=== PATIENT | female | born 1980 | race African-American/Black ===

== ENCOUNTER 2017-01-10 18:10 | Emergency (ER) | payer SELFPAY ==
[~2017-01-10] VITALS: Ht 162.6 cm; Wt 75.0 kg
[2017-01-10 18:12] VITALS: BP 134/84; PULSE 74; RESP 12; TEMP 97.7; O2SAT 98
[2017-01-10] MEDS ORDERED: PRED20 PO (18:39)
[2017-01-10] MEDS ORDERED: ALA1CRE2 TOPICAL (18:39)
[2017-01-10] MEDS ORDERED: DEXAMETHASONE SOD PHOS 20 MG/5 ML VIAL IM ONE (18:45)
--- NOTE | 2017-01-10 18:46 | PD ---
HPI Chief Complaint: Allergic/Adverse Reaction Time Seen by Provider: 18:31 Travel History International Travel<30 days: No Contact w/Intl Traveler<30days: No Traveled to known affect area: No History of Present Illness HPI 36-year-old female that presents to the ED for evaluation of itching and swelling on the forehead from using a perm. Per patient she used an old bottle and she wasn't sure if he was given a work for her about 3 days ago. Immediately after she started putting this she noted that she started itching. She did not notice the swelling until she looked in the mirror the day after. Ever since she was able to wash off the perm. But she has noticed that the itching and the swelling continues. She denies any other medical issues. No fevers chills or sweats. No shortness of breath or swelling to the throat. Denies ever having a reaction like this before and she believes that is because is an old bottle. Denies any pain with it. No drainage. PFSH Past Medical History Medical History: Denies Significant Hx ?: Not LMP: 12/20/16 Past Surgical History Surgical History: No Previous Surgery Social History Alcohol Use: No Tobacco Use: No Substance Use: No Allergies-Medications (Allergen,Severity, Reaction): Coded Allergies: No Known Allergies (Verified Allergy, Mild, 03/17/06) Reported Meds & Prescriptions Reported Meds & Active Scripts Active Ala-Shubham Topical (Hydrocortisone (Topical)) 1% Cream 1 Applic TOPICAL DIRECTED Prednisone 20 Mg Tab 20 Mg PO BID 5 Days Review of Systems Except as stated in HPI: all other systems reviewed are Neg Physical Exam Narrative GENERAL: SKIN: Warm and dry. Patient has an area of blistering as well as erythema noted on the forehead were the hair begins. Not painful but pruritic. Patient does have soft tissue swelling on the area. Appears to follow the area of the hair. Blistering noted. HEAD: Atraumatic. Normocephalic. EYES: Pupils equal and round. No scleral icterus. No injection or drainage. ENT: No nasal bleeding or discharge. Mucous membranes pink and moist. Tongue is midline. No uvula deviation. NECK: Trachea midline. No JVD. CARDIOVASCULAR: Regular rate and rhythm. No murmurs, S3, S4. RESPIRATORY: No accessory muscle use. Clear to auscultation. Breath sounds equal bilaterally. GASTROINTESTINAL: Abdomen soft, non-tender, nondistended. Hepatic and splenic margins not palpable. MUSCULOSKELETAL: Extremities without clubbing, cyanosis, or edema. No obvious deformities. Full range of motion of the upper and lower extremities bilaterally. 2+ pulses bilaterally. NEUROLOGICAL: Awake and alert. No obvious cranial nerve deficits. Motor grossly within normal limits. Five out of 5 muscle strength in the arms and legs. Normal speech. PSYCHIATRIC: Appropriate mood and affect; insight and judgment normal. Data Data Last Documented VS Vital Signs Date Time Temp Pulse Resp B/P (MAP) Pulse Ox O2 Delivery O2 Flow Rate FiO2 01/10/17 18:12 97.7 74 12 134/84 (101) 98 Orders Orders Dexamethasone Inj (Decadron Inj) (01/10/17 18:45) [facility] Medical Decision Making Medical Screen Exam Complete: Yes Emergency Medical Condition: Yes Medical Record Reviewed: Yes Differential Diagnosis allergic dermatitis versus skin dermatitis versus hives Narrative Course 36-year-old female that presents to the ED for evaluation of itchy rash. Patient was properly examined and was found to have signs and symptoms consistent with appears to be allergic dermatitis. Likely secondary to chronic use on her hair. Patient has since washed it off. She does have hives from the alleged reaction. Patient was given a dose of dexamethasone here and given prescription for hydrocortisone as well as prednisone. She was told to take Benadryl [id number] as needed for the age. She was told that the symptoms will likely continue for a couple of days to weeks. She was told that if anything worsens she is to come back to the ED. She was told to not use the product on her hair anymore. See ED for worsening symptoms. Diagnosis Primary Impression: Allergic dermatitis Patient Instructions: General Instructions Additional Instructions: Take medications as prescribed. He can take Benadryl 25 or 50 mg every 6 hours as needed. If it makes her too drowsy you can also use zyrtec, Claritin, Whit to help with the symptoms of itching but might not be as effective. See ED worsening symptoms. Follow with PCP. Do not put anything else in your hair other than your regular shampoo. Med/Other Pt SpecificInfo: Prescription(s) given Scripts Hydrocortisone (Topical) (Ala-Shubham Topical) 1% Cream 1 APPLIC TOPICAL DIRECTED for Inflammation, #1 TUBE 0 Refills Prov: Travon Tidwell MD 01/10/17 Prednisone (Prednisone) 20 Mg Tab 20 MG PO BID for 5 Days, #10 TAB 0 Refills Prov: Travon Tidwell MD 01/10/17 Disposition: 01 DISCHARGE HOME Condition: Indra Moreno Jan 10, 2017 18:46
[2017-01-10 19:15] VITALS: BP 109/63
== END 2017-01-10 19:16 | disposition home or self-care (01) ==
LOC: NEPD 18:10
DX: L23.9 Allergic contact dermatitis, unspecified cause (principal)
CPT/HCPCS: 96372; 99284; J1100

== ENCOUNTER 2017-04-24 09:05 | Emergency (ER) | payer OTHER | END 2017-04-24 10:14 | disposition home or self-care (01) | LOC: NEPD 09:05 | DX: N76.4 Abscess of vulva (principal) | CPT/HCPCS: 99284 ==

== ENCOUNTER 2017-04-27 12:17 | Emergency (ER) | payer OTHER ==
[~2017-04-27] VITALS: Ht 162.6 cm; Wt 78.0 kg
[~2017-04-27 12:17] MED LIST: ALA1CRE2 TOPICAL; BACT800T5 PO; PERC5TAB12 PO; PRED20 PO
[2017-04-27 12:19] VITALS: BP 126/81; PULSE 102; RESP 20; TEMP 99; O2SAT 99
[2017-04-27] MEDS ORDERED: LIDOCAINE HCL 1% 50 ML VIAL INFIL ONE (14:15)
[2017-04-27] MEDS ORDERED: LIDOCAINE HCL 1% PF 30 ML VIAL ONE (14:26)
[2017-04-27] MEDS ORDERED: HYDR-3516 PO (15:17)
--- NOTE | 2017-04-27 15:35 | PD ---
HPI Chief Complaint: Skin Problem Time Seen by Provider: 14:07 Travel History International Travel<30 days: No Contact w/Intl Traveler<30days: No Traveled to known affect area: No History of Present Illness HPI 36-year-old female that presents to the ED for evaluation of vaginal abscess. Patient reports that she was here on Tuesday was evaluated for it and at the time the didn't think that he was reasonable to incise and drain and recommended trial of antibiotics and pain medication. She didn't in the warm compresses as well as the medications given to her but the symptoms have not improved and she is concerned that she may need a drain. She's had the Bartholin cyst in the past and was told by a doctor that she might follow with [facility] to get this fixed so she doesn't have does but she has not been able to do so she has had no symptoms until this time. Has no allergies to medication. Per patient the pain is 7 out of 10 and gets worse with touch and with movement. Has no allergies to medication. She denies any drainage. She has not seen anybody since been seen here. PFSH Past Medical History Medical History: Denies Significant Hx Diminished Hearing: No Immunizations Current: Yes Tetanus Vaccination: Unknown Influenza Vaccination: No ?: Not LMP: 04/04/2017 Past Surgical History Surgical History: No Previous Surgery Section: Yes (X 2) Gynecologic Surgery: Yes ( ) Social History Alcohol Use: No Tobacco Use: No Substance Use: No Allergies-Medications (Allergen,Severity, Reaction): Coded Allergies: No Known Allergies (Verified Allergy, Mild, 04/27/17) Reported Meds & Prescriptions Reported Meds & Active Scripts Active Hydrocodone-Acetaminophen 5-325 mg Tab 1 Tab PO Q6H PRN Bactrim DS (Sulfamethoxazole-Trimethoprim) 800-160 Mg Tab 1 Tab PO BID Percocet (Oxycodone-Acetaminophen) 5-325 mg Tab 1 Tab PO Q6H PRN Review of Systems Except as stated in HPI: all other systems reviewed are Neg Physical Exam Narrative GENERAL: SKIN: Warm and dry. Patient has abscess like mass on the right labia. Seen with female nurse present. Patient is mass is about 4 cm in diameter and very fluctuant. Tender to touch. HEAD: Atraumatic. Normocephalic. EYES: Pupils equal and round. No scleral icterus. No injection or drainage. ENT: No nasal bleeding or discharge. Mucous membranes pink and moist. Tongue is midline. No uvula deviation. NECK: Trachea midline. No JVD. CARDIOVASCULAR: Regular rate and rhythm. No murmurs, S3, S4. RESPIRATORY: No accessory muscle use. Clear to auscultation. Breath sounds equal bilaterally. GASTROINTESTINAL: Abdomen soft, non-tender, nondistended. Hepatic and splenic margins not palpable. MUSCULOSKELETAL: Extremities without clubbing, cyanosis, or edema. No obvious deformities. Full range of motion of the upper and lower extremities bilaterally. 2+ pulses bilaterally. NEUROLOGICAL: Awake and alert. No obvious cranial nerve deficits. Motor grossly within normal limits. Five out of 5 muscle strength in the arms and legs. Normal speech. PSYCHIATRIC: Appropriate mood and affect; insight and judgment normal. Data Data Last Documented VS Vital Signs Date Time Temp Pulse Resp B/P (MAP) Pulse Ox O2 Delivery O2 Flow Rate FiO2 04/27/17 12:19 99.0 102 20 126/81 (96) 99 Room Air Orders Orders Wound Culture And Gram Stain (04/27/17 14:08) Wound Care (04/27/17 14:08) Lidocaine 1% Inj (50 Ml) (Xylocaine 1% I (04/27/17 14:15) Lidocaine Pf 1% Inj (Xylocaine-Mpf 1% In (04/27/17 14:26) Ed Discharge Order (04/27/17 15:30) [facility] Medical Decision Making Medical Screen Exam Complete: Yes Emergency Medical Condition: Yes Medical Record Reviewed: Yes Differential Diagnosis Bartholin cyst versus abscess versus infected cyst Narrative Course 36-year-old female that presents to the ED for evaluation of Bartholin cyst. Patient was properly examined and was found to have signs and symptoms consistent appears to be Bartholin cyst. At this time I do recommend incision and drainage. My attending Dr. Vásquez evaluated the patient with me and agrees with plan. Patient agrees to proceed and gave verbal consent for incision and drainage. Catheter was placed. Patient was told to get it removed in the next 4-6 weeks. Follow-up with [facility]. Given prescription for Lortab. Told to continue taking the Bactrim. Cultures were taken. Procedures Procedure Narrative After the risks and benefits were discussed the following procedure was performed: INCISION AND DRAINAGE OF ABSCESS: The area was prepped and was sterilely draped. A subcutaneous wheal of 1 % Xylocaine with a total number 5 mL was used to anesthetize the area. The area was properly anesthetized. A number 11 scalpel was used to make a 1 -cm incision across the area of the abscess. Cultures were obtained. The abscess was drained an irrigated with normal saline. [place] catheter placed. Sterile dressing applied. Patient advised to have cathether removed in 4-6 weeks. Diagnosis Primary Impression: Bartholin gland cyst Patient Instructions: General Instructions Additional Instructions: Take medications as prescribed. Follow-up with [facility] See ED for any worsening symptoms. Do not drink or drive while taking pain medication. Apply ice or heat as needed for pain. Change dressings daily Med/Other Pt SpecificInfo: Prescription(s) given, Wound Care Scripts Hydrocodone-Acetaminophen (Hydrocodone-Acetaminophen) 5-325 mg Tab 1 TAB PO Q6H Y for PAIN, #12 TAB 0 Refills Prov: Marian Vásquez MD 04/27/17 Disposition: 01 DISCHARGE HOME Condition: Stable Indra Vega Apr 27, 2017 15:35
--- NOTE | 2017-04-27 15:50 | PD ---
Data Data Last Documented VS Vital Signs Date Time Temp Pulse Resp B/P (MAP) Pulse Ox O2 Delivery O2 Flow Rate FiO2 04/27/17 12:19 99.0 102 20 126/81 (96) 99 Room Air Orders Orders Wound Culture And Gram Stain (04/27/17 14:08) Wound Care (04/27/17 14:08) Lidocaine 1% Inj (50 Ml) (Xylocaine 1% I (04/27/17 14:15) Lidocaine Pf 1% Inj (Xylocaine-Mpf 1% In (04/27/17 14:26) Ed Discharge Order (04/27/17 15:30) MDM Supervised Visit with GE: Yes Narrative Course The history, exam, and medical decision-making in the associated midlevel provider note were completed with my assistance. I reviewed and agree with the findings presented. I attest that I had a [id number] encounter with the patient on the same day, and personally performed and documented my assessment and findings in the medical record. *My assessment and Findings: This is a 36-year-old female who presents to the emergency department with a Bartholin's cyst involving the right labia. I was present for incision and drainage. We placed a Word catheter. Patient tolerated the procedure well. She was instructed to continue her antibiotics. Diagnosis Primary Impression: Bartholin gland cyst Patient Instructions: General Instructions Additional Instruction: Take medications as prescribed. Follow-up with [facility] See ED for any worsening symptoms. Do not drink or drive while taking pain medication. Apply ice or heat as needed for pain. Change dressings daily Scripts Hydrocodone-Acetaminophen (Hydrocodone-Acetaminophen) 5-325 mg Tab 1 TAB PO Q6H Y for PAIN, #12 TAB 0 Refills Prov: Marian Vásquez MD 04/27/17 Disposition: 01 DISCHARGE HOME Condition: Stable Marian Vásquez MD Apr 27, 2017 15:50
== END 2017-04-27 16:10 | disposition home or self-care (01) ==
LOC: NEPD 12:17
DX: N75.0 Cyst of Bartholin's gland (principal)
CPT/HCPCS: 56420; 87070